=== PATIENT | female | born 1955 | race Two or more races ===

== ENCOUNTER 2022-12-19 06:25 | Day surgery (SDC) | payer OTHER ==
[~2022-12-19] VITALS: Ht 157.5 cm; Wt 61.2 kg
[~2022-12-19 06:25] MED LIST: CRESTOR20 MG PO; MULTIVI PO; SYNTHROID88 MCG PO
== END 2022-12-19 22:30 | disposition home or self-care (01) ==
LOC: CIR.AMB 06:25
PROVIDERS: ATTEND Surgery
DX: C50.212 Malignant neoplasm of upper-inner quadrant of left female breast (principal); Z91.013 Allergy to seafood; Z88.6 Allergy status to analgesic agent; I10 Essential (primary) hypertension; E78.00 Pure hypercholesterolemia, unspecified; Z86.16 Personal history of COVID-19; E03.9 Hypothyroidism, unspecified; Z20.822 Contact with and (suspected) exposure to COVID-19
CPT/HCPCS: 19301; 38525; 38792; 19281; L8600; A9541